=== PATIENT | female | born 1995 | race Caucasian/White ===

== ENCOUNTER → 2018-08-19 | Outpatient (CLI) | payer OTHER ==
--- NOTE | 2018-08-19 16:39 | KCIC ---
Pelvic ultrasound Clinical Indication: Pelvic pain for 2 months.. . TRANSABDOMINAL SCAN Limited visualization of uterus. Right ovary measures 3.9 cm with intact blood supply. Mild free fluid is seen. TRANSVAGINAL SCAN Uterus: * Size (in centimeters): 8 cm longitudinal by 4.4 wide by 3.2 AP * Appearance: Small nabothian cyst identified at the lower uterine segment. * Endometrium: 7 mm endometrial stripe thickness. Uniform appearance. Right ovary: * Size: 3.7 cm long axis. * Blood flow: Intact * Appearance: Small follicles, largest measures 16 mm. This has a somewhat irregular shape and heterogeneous echotexture. Left ovary: * Size: 2.5 cm long axis. * Blood flow: Intact * Appearance: No significant mass. Free fluid: Moderate ascites IMPRESSION: 1. Small irregular 16mm right ovarian cyst, could be due to rupture or collapsing state. Recommend short-term pelvic ultrasound follow-up in 6-8 weeks. 2. Moderate ascites Electronically signed by: Tremayne Gardiner MD (08/19/2018 4:35 PM) [facility]
== END | disposition home or self-care (01) ==
LOC: KCIC US 07:41
PROVIDERS: ATTEND Family Medicine
DX: N83.291 Other ovarian cyst, right side (principal); N88.8 Other specified noninflammatory disorders of cervix uteri
CPT/HCPCS: 76830; 76856